=== PATIENT | female | born 1955 | race Caucasian/White ===

== ENCOUNTER 2023-11-07 23:07 | Inpatient (IN) | payer OTHER, SELFPAY ==
[2023-11-07] VITALS (8 sets, daily range): BP systolic 86–134; BP diastolic 45–92; BMI 36.8
[2023-11-07 18:16] LABS: % Basophils 0.4 % (0-2); % Eosinophils 1.5 % (0-6); % Immature Granulocytes 0.5 % (0-0.5); % Lymphocytes 15.1 % (20.5-51.1); % Monocytes 5.4 % (1.7-9.3); % Neutrophils 77.1 % (42.2-75.2); Absolute Eosinophils 0.1 10^3/uL (0-0.7); Absolute Immature Granulocytes 0.1 10^3/uL (0-0.05); Absolute Lymphocytes 1.4 10^3/uL (1.2-3.4); Absolute Monocytes 0.5 10^3/uL (0.1-0.6); Absolute Neutrophils 7.1 10^3/uL (1.4-6.5); Hematocrit 34.9 % (37.0-47.0); Hemoglobin 11.5 g/dL (12.0-16.0); Mean Corpuscular Hgb 33.4 pg (27.0-31.0); Mean Corpuscular Volume 101.5 fL (81.0-99.0); Mean Platelet Volume 8.5 fL (7.4-10.4); Nucleated Red Blood Cells % 0 %; Platelet Count 332 10^3/uL (130-400); Red Blood Cell Count 3.44 10^6/uL (4.20-5.40); Red Cell Dist. Width 16.9 % (11.5-14.5); White Blood Cell Count 9.3 10^3/uL (4.8-10.8)
[2023-11-07 18:27] LABS: INR 1.22; PT 15.4 Sec (11.4-14.6)
[2023-11-07 18:36] LABS: ALT (SGPT) 19 U/L (0-35); AST (SGOT) 39 U/L (14-36); Albumin 2.6 g/dl (3.5-5.0); Alkaline Phosphatase 231 U/L (38-126); Blood Urea Nitrogen 13 mg/dl (7-17); Calcium 7.8 mg/dl (8.4-10.2); Carbon Dioxide 23 mmol/L (22-30); Chloride 106 mmol/L (98-107); Glucose 109 mg/dl (70-99); Potassium 3.8 mmol/L (3.5-5.1); Sodium 133 mmol/L (135-145); Total Bilirubin 0.7 mg/dl (0.2-1.3); Total Protein 5.2 g/dl (6.3-8.2); eGFR > 60.00
--- NOTE | 2023-11-07 18:37 | ED.GENMED ---
History of Present Illness
General
Chief Complaint: Rectal Bleeding
Source: patient
Exam Limitations: none
Time Seen by Provider: 11/07/23 18:01
Travel History
Have you had any contact with someone who has COVID-19?: No
Do you have any symptoms of coronavirus? Fever > 100 degrees, chills, cough, shortness of breath, sore throat, loss of taste or smell, muscle aches, or headache?: No
History of Present Illness
History of Present Illness:
This is a 68 year old female that comes in with c/o vomiting. States that she is just vomiting bile. States that this started today. States that also about 4 days ago she has stool that was dark blood with clots. States that she felt SOB, nausea,
vomiting and has diarrhea. States that she is also lightheaded. Denies any fever, chills, chest pain, headache, urinary burning.
Past History
Past History
ED Past Medical History: Cancer (colon and cervical), COPD, HTN, Psychiatric (depression) and Other (Obesity, SBO, JAYLEEN, migraines, back pain, DVT/PE, Sleep apnea, Ascites)
ED Past Surgical History: Bowel resection (Colon resectio), Cholecystectomy, Gynecological (Cervical CA) and Orthopedic (Cervical spine Surgery, )
Social History
Tobacco: Smoker
Alcohol: None
Drug: None
Personal:
Living: with family
Employment: Other
Family History
Family History: Other
Review of Systems
Review of Systems
All Other Systems: ROS reviewed and negative except as documented in HPI and ROS
Constitutional: Reports no symptoms; Denies fever or chills
EENT: Reports no symptoms
Respiratory: Reports trouble breathing; Denies cough
Cardiac: Reports no symptoms; Denies chest pain
ABD/GI: Reports nausea, vomiting, diarrhea and bloody stools; Denies abdominal pain
: Reports no symptoms; Denies dysuria, frequency or urgency
Musculoskeletal: Reports no symptoms
Skin: Reports no symptoms
Neurological: Reports other (Lightheaded); Denies dizzy or headache
Psychiatric: Reports no symptoms
Phy Exam
General Physical Exam
General Presentation: no apparent distress
General age: appears stated age
General Skin: warm, dry and pale
General Habitus: elderly
General Mental: alert
General Hydration: dry mucous membranes
ENT Exam
ENT Exam: TM's normal, pharynx normal and neck supple
Eye Exam
Eye Exam: EOMI
Cardiovascular Exam
Cardiovascular Exam: regular rate/rhythm, no edema and normal peripheral pulses
Pulmonary Exam
Pulmonary Exam: lungs clear, no respiratory distress, no rales, chest non tender, no crackles, no rhonchi, no wheezing and no cough
Gastrointestinal Exam
Gastrointestinal Exam: soft, no organomegaly, no pulsatile mass, non distended, tender (Generalized soreness with palpation) and other (Hypoactive bowel sounds. Stool brown hem positive slightly)
Musculoskeletal Exam
Musculoskeletal Exam: full ROM and no edema
Skin Exam
Skin Exam: warm/dry, no petechia, pallor and other (Burn ole on the right buttocks. Negative for any drainage)
Psychiatric Exam
Psychiatric Exam: normal mood/affect
Course
Orders/Labs/Results
Orders:
Orders
11/07/23 18:08
Type+Screen Urgent
Complete Blood Count/With Diff Urgent
Comprehensive Metabolic Panel Urgent
Prothrombin Time Urgent
11/07/23 18:36
CT Abd/pelvis W Iv Cont Urgent
Comment: Colon resection for CA
Reason For Exam: Generalized tenderness with palpation
0.9% Sodium Chloride 1000 ml [Nss] 1,000 ml IV BOLUS
Ondansetron Injectable [Zofran] 4 mg IV NOW STA
Pantoprazole [Protonix IV] 40 mg IV NOW STA
11/07/23 18:39
CR Chest - 2 Views Urgent
Comment:
Reason For Exam: SOB
11/07/23 18:46
Urinalysis Reflex To Culture Urgent
11/07/23 18:47
Electrocardiogram (*1) Urgent
Reason for Study: Shortness of Breath
EKG- Treatment ONCE
11/07/23 19:00
Troponin I Urgent
Abnormal Lab Results
11/07/23
18:08
RBC 3.44 L 10^6/uL
(4.20-5.40)
Hgb 11.5 L g/dL
(12.0-16.0)
Hct 34.9 L %
(37.0-47.0)
MCV 101.5 H fL
(81.0-99.0)
MCH 33.4 H pg
(27.0-31.0)
RDW 16.9 H %
(11.5-14.5)
Abs Immat Gran (auto) 0.1 H 10^3/uL
(0-0.05)
Absolute Neuts (auto) 7.1 H 10^3/uL
(1.4-6.5)
Neutrophils % 77.1 H %
(42.2-75.2)
Lymphocytes % 15.1 L %
(20.5-51.1)
PT 15.4 H Sec
(11.4-14.6)
Sodium 133 L mmol/L
(135-145)
Glucose 109 H mg/dl
(70-99)
Calcium 7.8 L mg/dl
(8.4-10.2)
AST 39 H U/L
(14-36)
Alkaline Phosphatase 231 H U/L
(38-126)
Total Protein 5.2 L g/dl
(6.3-8.2)
Albumin 2.6 L g/dl
(3.5-5.0)
11/07/23 18:08
11/07/23 18:08
H/H slighlty low. PT 15.4 with INR 1.23, Sodium slighlty low. Glucose nonfasting. Calcium low. AST slightly elevated. Alk phos elevation (history of Cancer) Total Protein low. Albumin low.
Vital Signs
Initial and Last Documented VS:
Initial Vital Signs
Temp Pulse Resp BP Pulse Ox
97.5 F 92 17 110/45 94
11/07/23 18:02 11/07/23 18:02 11/07/23 18:02 11/07/23 18:02 11/07/23 18:02
Last Documented Vital Signs
Temp Pulse Resp BP Pulse Ox
97.5 F 86 15 116/76 97
11/07/23 18:02 11/07/23 21:00 11/07/23 21:00 11/07/23 21:00 11/07/23 20:30
MDM/Problems Addressed
Differential Diagnosis Includes:
GI bleeding. Viral syndrome.
MDM/Problems Addressed:
This is a 68 year old female that comes in with c/o vomiting that started today. States that she is vomiting just bile. States that 4 nights ago she also has a stool that was dark bloody with clots according to her daughter.
Will get Labs, CT abd/pelvis, IV fluids
CT cont- 3mm nephrolith in the lower pole the left kidney. Slight dilation of the infrarenal abdominal aorta, A: dimension of 2.8.
Back into see patient. Explained that she has a small bowel obstruction. Will admit patient. Hospitalist notified.
Chronic conditions affecting care: Cancer
Acute Exacerbation and/or Progression of Chronic Illness: Cancer
*Radiology
Radiology exam reviewed: preliminary read by ED provider (Chest- Negative for active disease), radiology read reviewed (CT-CT findings compatible with small bowel obstrauction. Small amount of fluid in the right upper and left upper quadrant
adjacent to the liver and spleen. Small amount of fluidin the pelvic cul-de-sac, and this fluid demonstrates a slightly thickened enhancing wall suggestive of peritoneal), all reviewed NAD by ED Provider (CT cont- Suggestive of peritoneal neoplastic
disease. Soft tissue mass within the left anterolateral abdomen, which is likely peritoneal carcinomatosis involving the omentum, similar appearance to previous examination. Mass in the left adnexal region, likely arising in the left ovary, stable
from ) and other (CT cont- from previous exam. Severe fatty infiltration of the liver. Subtle low-density region involving the liver in the periportal region, probably slightly smaller than on previous examination, which may represent positive
response to metastatic neoplastic disease. 3mm nephrolith in the lower )
*Pulse Oximetry
Patient hypoxic: no
*EKG
Interpreted by ED Provider?: Yes
Heart Rate: 88
Rate: normal
Rhythm: sinus arrhythmia
Cache: normal axis
Interval: normal interval
QRS Pattern: normal QRS
Ischemia: no ischemia (Checked by Dr. Rousseau)
*Pattern Molder Interpretation
Rate: normal
Heart Rate: 91
Rhythm: sinus
*Critical Care Note
Total Time (30-74mins, 75-104mins- exclusive of procedures): Not Applicable
ED Attending Note
-
Portions of this chart may have been created with voice recognition software.� Occasional wrong word or��sound alike� substitutions may have occurred due to the inherent limitations of voice recognition software.
Discharge Plan
Departure
Patient Disposition: Admit
Date of Disposition: 11/07/23
Time of Disposition: 21:47
Admit to: Telemetry
Presentation/result/management discussed w/ accepting MD/DO: Hospitalist
Patient with high blood pressure during this ER visit?: No
Condition: Good
Covid-19: Not Applicable
Discharge Problem:
SBO (small bowel obstruction), Hypocalcemia
Prescriptions:
No Action
gabapentin 100 MG capsule
200 mg PO TID
fluticasone propion-salmeterol 250-50 mcg/dose blister with device
1 inh INHALATION R BID
loratadine [Claritin] 10 mg Tablet
10 mg PO DAILY
calcium carbonate [Tums] 200 mg calcium (500 mg) Tablet,Chewable
200 mg PO TIDPRN PRN (Reason: gerd)
loperamide 2 mg Capsule
2 mg PO Q4H PRN (Reason: diarrhea) Qty: 0 0RF
potassium chloride 20 mEq/15 mL Liquid
40 meq PO DAILY Qty: 0 0RF
Santyl 250 unit/gram Ointment
1 applic topical DAILY Qty: 30 0RF
cholestyramine-aspartame [Cholestyramine Light] 4 gram Powder In Packet
4 g PO BID@0900,1800 Qty: 0 0RF
mirtazapine 7.5 mg Tablet
7.5 mg PO HS Qty: 20 0RF
sodium bicarbonate 650 mg Tablet
650 mg PO TID Qty: 0 0RF
bupropion HCl 300 mg Tablet Extended Release 24 Hr
300 mg PO DAILY Qty: 0 0RF
bupropion HCl 150 mg Tablet Extended Release 24 Hr
150 mg PO HS Qty: 0 0RF
Referrals:
Lalita Small CRNP [Family Provider] -
Interventions
Interventions:
*Risk Screen - Suicide Last Done: 11/07/23 18:01
*General Assessment Last Done: 11/07/23 18:01
*Neglect/Abuse Screening Last Done: 11/07/23 18:01
ED- Fall Risk Assessment Last Done: 11/07/23 19:01
*ED COVID-19 Vaccine History Last Done: 11/07/23 18:01
SV-Pmclpm-Caupxkonpy Assessment Last Done: 11/07/23 19:01
ED- Cardiac Assessment Last Done: 11/07/23 19:01
ED- Pulmonary Assessment Last Done: 11/07/23 19:01
[2023-11-07] MEDS: PROTONIX IV 40 MG IV (18:55)
[2023-11-07] MEDS: ZOFRAN 4 MG IV (18:56)
[2023-11-07] MEDS: NSS 1000 IV (18:56)
[2023-11-07 19:39] LABS: Troponin I < 0.012 ng/ml
--- NOTE | 2023-11-07 22:17 | HPS.HSE ---
Addendum entered and electronically signed by Braulio Mejia MD 11/07/23 22:58:
I saw and examined the patient.
The FREIGHT UNLOADER or PA's note was reviewed and I agree with the note.
Comment:
68F Obese HX met ovarian CA with extensive peritoneal dz, ascites with HX abdominal paracentesis longer on chemo since late 2022, HX SBO, chronic diarrhea, HX pancytopenia a/w recurrent partial SBO and suspected HoB pos brown stool GIB.
Hemodynamically stable. Current Hgb 11 seems hemoconcentrated. baseline Hgb was low8s. NPO, IVF, Blood consent, T & S.IV PPI BID. DNR. IMU. GS, GI and Onco consult.
Original Note:
Family Physician
-
Family Physician: HEIDI Farias
Chief Complaint
-
Vomiting
History of Present Illness
Pt is a 68yo F w/ a PMH of Colon and Ovarian Cancer, HTN, and COPD who is presenting to the ED c/o vomiting x 4 days. She states the vomit is bilious and non-bloody. She states she has passed two loose bloody stools with clots in the last 4 days.
She states she has been experiencing RUQ abdominal pain x 1 week which she states is bothersome at baseline but severe when passing stool. She states she has been unable to eat for the last three days. She admits to belching, bloating, and abdominal
distention. She admits to a history of a previous small bowel obstruction and states these symptoms are similar to that occurrence. She denies fever, chills, sweats, chest pain, headaches, urinary burning/retention/frequency, difficulty keeping
fluids down, or increased bruising.
Medical History
Past Medical History
Past Medical History: Reports Other
Additional Past Medical History:
COPD
Essential hypertension
History of VTE
Chronic peripheral neuropathy
Anxiety/depression
Tobacco dependence
Obesity
Colon cancer
Ovarian cancer
Obstructive sleep apnea
Past Surgical History: Reports Gynocological and Other
Additional Past Surgical History:
Partial colectomy
Cholecystectomy
Orthopedic surgery of cervical spine
Social History
Tobacco: Smoker (Less than 5 cigarettes daily)
Alcohol: None
Drug: None
Living: With Family
Family History
Family History: Not pertinent
Allergies / Home Medications
Allergies reflects when Allergies were last updated in [facility].
Home Medications with original date entered in [facility]
Allergy/Medication List:
Allergies
Allergy/AdvReac Type Severity Reaction Status Date / Time
No Known Allergies Allergy Verified 05/06/23 22:14
Home Medications
gabapentin 100 mg capsule 200 mg PO TID leg pain 11/10/20
fluticasone 250 mcg-salmeterol 50 mcg/dose blistr powdr for inhalation 1 inh inhalation R BID Lung/Breathing Issues 03/15/23
loratadine 10 mg tablet (Claritin) 10 mg PO DAILY PRN prior to chemo shot 05/17/23
calcium carbonate 200 mg calcium (500 mg) chewable tablet (Tums) 200 mg PO TIDPRN PRN gerd 08/17/23
bupropion HCl 150 mg 24 hr tablet, extended release 150 mg PO HS #0 tabs 08/30/23
bupropion HCl 300 mg 24 hr tablet, extended release 300 mg PO DAILY #0 tabs 08/30/23
cholestyramine-aspartame 4 gram oral powder for susp in a packet (Cholestyramine Light) 4 g PO BID@0900,1800 #0 ea 08/30/23
mirtazapine 7.5 mg tablet 7.5 mg PO HS #20 tabs 08/30/23
sodium bicarbonate 650 mg tablet 650 mg PO TID #0 tabs 08/30/23
apixaban 5 mg tablet (Eliquis) 5 mg PO BID 11/07/23
potassium chloride 20 mEq tablet,extended release 40 meq PO DAILY 11/07/23
Review of Systems
-
A 12 point ROS was completed and negative except as noted: Yes
Constitutional: Denies Fever or Chills
Respiratory: Denies Cough or Trouble Breathing
Cardiac: Denies Chest Pain or Palpitations
Abdomen/GI: Reports See HPI
Physical Exam
Vital Signs
Vital Signs
Temp Pulse Resp BP Pulse Ox
97.5 F 97 21 134/72 97
11/07/23 18:02 11/07/23 22:00 11/07/23 22:00 11/07/23 22:00 11/07/23 20:30
Physical Exam
General: Comfortable and Conversant
HEENT: Anicteric and Moist mucous membranes
Respiratory: Clear and Non Labored Respirations
Cardiac: S1/S2 and Regular Rhythm
GI: Soft, Tender (Mild throughout without rebound or guarding) and Other (Hypoactive bowel sounds)
Rectal: Hem Positive (Per ED provider)
Musculoskeletal: No Clubbing and No Cyanosis
Skin: Warm and Dry
Neuro: Awake, Alert, Oriented and Nonfocal/grossly intact
Laboratory Results
-
11/07/23 18:08
11/07/23 18:08
Laboratory Results
PT 15.4 Sec (11.4-14.6) H 11/07/23 18:08
INR 1.22 11/07/23 18:08
Total Bilirubin 0.7 mg/dl (0.2-1.3) 11/07/23 18:08
AST 39 U/L (14-36) H 11/07/23 18:08
ALT 19 U/L (0-35) 11/07/23 18:08
Alkaline Phosphatase 231 U/L (38-126) H 11/07/23 18:08
Troponin I < 0.012 ng/ml 11/07/23 19:00
Data Reviewed
-
CT Scan: Report Reviewed by me
Lab Data: Labs Reviewed by me
Old Records: Reviewed
Impression/Plan
-
Partial Small Bowel Obstruction, possibly related to adhesions vs peritoneal carcinomatosis
-Consult Surgical
-Continue NPO - Hold on NGT unless develops increased abdominal pain or recurrent vomiting
GI Bleed, patient notes passage of blood/clots a few days ago with heme-positive stool in ED
-Consult GI
-Hold Eliquis
-Trend H&H
-Blood consent obtained
Metastatic Ovarian Cancer
-Consult Oncology
-Monitor blood counts
Anxiety/Depression
-Continue bupropion and Remeron if able to tolerate sips of clears
Peripheral Neuropathy
-Continue gabapentin
Chronic Diarrhea
-Hold cholestyramine
COPD, no acute exacerbation
-Continue fluticasone/salmeterol
DVT Proph: SCDs until able to resume Eliquis
Code Status: DNR confirmed with patient at time of admission
[2023-11-08] VITALS (7 sets, daily range): BP systolic 105–134; BP diastolic 43–75; BMI 36.8
[2023-11-08] MEDS: NSS 1000 IV ×2 (00:37→13:00)
--- NOTE | 2023-11-08 01:21 | PTCARENOTE ---
Received pt from the ER via stretcher at 2340. She arrived awake and alert and oriented x 3. She was incontinent of urine an a smear of BM dark in color. She has no complaints of any nausea. She is taking ice chips orally without difficulty or
nausea. She has a wound , 'burn' on her R hip area that was dressed by VN. Removed dressing and cleansed with NSS and dressed with a boarder Silicone dressing. Will consult wound care.
[2023-11-08 05:11] LABS: Hematocrit 32.3 % (37.0-47.0); Hemoglobin 10.6 g/dL (12.0-16.0); Mean Corp Hgb Conc. 32.8 g/dL (33.0-37.0); Mean Corpuscular Hgb 33.3 pg (27.0-31.0); Mean Corpuscular Volume 101.6 fL (81.0-99.0); Mean Platelet Volume 8.6 fL (7.4-10.4); Platelet Count 272 10^3/uL (130-400); Red Blood Cell Count 3.18 10^6/uL (4.20-5.40); White Blood Cell Count 5.9 10^3/uL (4.8-10.8)
[2023-11-08 05:35] LABS: Blood Urea Nitrogen 13 mg/dl (7-17); Calcium 7.6 mg/dl (8.4-10.2); Carbon Dioxide 23 mmol/L (22-30); Chloride 109 mmol/L (98-107); Estimated Creatinine Clearance 87 ml/min; Glucose 81 mg/dl (70-99); Potassium 3.7 mmol/L (3.5-5.1); Sodium 136 mmol/L (135-145); eGFR > 60.00
[2023-11-08] MEDS: ZOFRAN 4 MG IV (07:18)
[2023-11-08] MEDS: ADVAIR HFA 115/21 MCG INHALER 2 PUFF INH ×2 (07:27→19:39)
--- NOTE | 2023-11-08 07:36 | CON.GI ---
Addendum entered and electronically signed by Lois Gamino Do, MD 11/08/23 13:10:
I saw and examined the patient.
The RELOCATION SERVICES SPECIALIST's note was reviewed and I agree with the note.
Comment: Ayah is a 68yo W with h/o colon cancer s/p resection 2020 then metastatic ovarian cancer diagnosed 2022 s/p chemo who was admitted for N/V found to have SBO and carcinomatosis. Exam VSS AF. chronically ill appearing, distended abd,
hypoactive BS. Labs reviewed Imaging CT with SBO with carcinomatosis, mass in L adenxa region.
Impression
- SBO
Likely related to carcinomatosis and possible adhesions
- Metastatic ovarian ca
- H/o Colon cancer
- Chronic anemia
- COPD
- s/p CYY
Recommendations
- Agree with NGT placement
- Appreciate surgical recs
- Diet per surgery
- C/w IVF
- Would be difficult to place venting PEG tube given carcinomatosis.
At this juncture GI will sign off but available for questions
Original Note:
Consultation
-
Date/Time Consultation Requested: 11/07/23 2345
Date/Time Consultation Performed: 11/08/23 0900
Requesting Provider: Haily Ross PA-C
Performing Provider: HEIDI Rodriguez, Lois Garcia MD
Reason for Consultation: vomiting, blood stools
Medical History
Chief Complaint / HPI
Chief Complaint: vomiting
History of Present Illness:
Pt is a 68yo with hx colon CA 2020 with partial resection and chemo, then metastatic ovarian CA dx 2022 with chemo, COPD, DVT on Eliquis, anxiety/depression, neuropathy with onset of vomiting x 4 days. She is also noted with blood stools and
recall 2 episode of burgundy stool in diaper. Pt states prior to admission she would have occasional days of vomiting but would resolve quickly. She is also noted with increased GERD over last few days. On admission CT concerning for small bowel
obstruction with fluid in cul de sac and thickened wall with peritoneal neoplastic disease with soft tissues mass similar to prior exam, mass in left adnexal region, fatty liver slightly smaller.
Pt also admits to chronic diarrhea since last year with mild abdominal pain. She has had decrease mobility and chronic loose stools in diaper. She has had over 100 lbs wt loss last 1-2 years with diagnosis of cancer. She otherwise denies
dysphagia, or black stools. last colonoscopy 02/[address] Carranza - 5 mm polyp TC, diverticulosis, hemorrhoids Bx TA polyp
Past Medical History
Past Medical History: Cancer (2022 metastatic ovarian CA with extensive peritoneal disease, ascites, colon CA 2020 with partial resection and chemo), COPD, HTN, Psychiatric (anxiety/depression) and Other (SBO, chronic diarrhea, pancytopenia, DVT,
obesity, tobacco abuse, neuropathy)
Past Surgical History: Bowel Resection (right hemicolectomy), Cholecystectomy and Other (pilonidal cyst excision)
Social History
Tobacco: Smoker (2 cigarettes daily )
Alcohol: None
Drug: None
Living: With Family (daughter and grandchild)
Employment: Retired
Family History
Family History: Reviewed & Not Pertinent
Allergies / Home Medications
Allergy/AdvReac Type Severity Reaction Status Date / Time
No Known Allergies Allergy Verified 05/06/23 22:14
Medication Instructions Recorded
gabapentin 100 mg capsule 200 mg PO TID leg pain 11/10/20
fluticasone 250 mcg-salmeterol 50 1 inh inhalation R BID 03/15/23
mcg/dose blistr powdr for Lung/Breathing Issues
inhalation
loratadine 10 mg tablet (Claritin) 10 mg PO DAILY PRN prior to chemo 05/17/23
shot
calcium carbonate 200 mg calcium 200 mg PO TIDPRN PRN gerd 08/17/23
(500 mg) chewable tablet (Tums)
bupropion HCl 150 mg 24 hr tablet, 150 mg PO HS #0 tabs 08/30/23
extended release
bupropion HCl 300 mg 24 hr tablet, 300 mg PO DAILY #0 tabs 08/30/23
extended release
cholestyramine-aspartame 4 gram 4 g PO BID@0900,1800 #0 ea 08/30/23
oral powder for susp in a packet
(Cholestyramine Light)
mirtazapine 7.5 mg tablet 7.5 mg PO HS #20 tabs 08/30/23
sodium bicarbonate 650 mg tablet 650 mg PO TID #0 tabs 08/30/23
apixaban 5 mg tablet (Eliquis) 5 mg PO BID 11/07/23
potassium chloride 20 mEq 40 meq PO DAILY 11/07/23
tablet,extended release
Review of Systems
-
History Source: Patient
Constitutional: Reports Weight Loss and Fatigue
EENT: Reports No Symptoms
Respiratory: Reports Cough (with NGT placement )
Abdomen/GI: Reports Abdominal Pain (mild), Nausea, Vomiting, Diarrhea and Bloody Stools
: Reports No Symptoms
Musculoskeletal: Reports Other (decreased mobility with neuropathy)
Skin: Reports No Symptoms
Neurological: Reports Weakness
Endocrine: Reports No Symptoms
Hematologic/Lymphatic: Reports Bleeding
Vital Signs
Temp Pulse Resp BP Pulse Ox
98.9 F 78 15 118/64 96
11/08/23 03:03 11/08/23 07:32 11/08/23 07:32 11/08/23 04:00 11/08/23 07:32
Physical Exam
Exam
General: Well Developed, Well Nourished and Other (some noted coughing after NGT placement )
HEENT: Normocephalic and Anicteric
Respiratory: Other (decreased )
Cardiac: Regular Rhythm
GI: Soft, Non Tender and Non Distended
Rectal: Other (brown heme + in ER)
Musculoskeletal: No Clubbing and No Cyanosis
Skin: Warm and Dry
Neuro: Awake, Alert and AO x 3
Psych: Calm
Results
WBC 5.9 10^3/uL (4.8-10.8) 11/08/23 05:01
Hgb 10.6 g/dL (12.0-16.0) L 11/08/23 05:01
Hct 32.3 % (37.0-47.0) L 11/08/23 05:01
MCV 101.6 fL (81.0-99.0) H 11/08/23 05:01
Plt Count 272 10^3/uL (130-400) 11/08/23 05:01
Absolute Neuts (auto) 7.1 10^3/uL (1.4-6.5) H 11/07/23 18:08
PT 15.4 Sec (11.4-14.6) H 11/07/23 18:08
INR 1.22 11/07/23 18:08
Sodium 136 mmol/L (135-145) 11/08/23 05:01
Potassium 3.7 mmol/L (3.5-5.1) 11/08/23 05:01
Chloride 109 mmol/L (98-107) H 11/08/23 05:01
Carbon Dioxide 23 mmol/L (22-30) 11/08/23 05:01
BUN 13 mg/dl (7-17) 11/08/23 05:01
Creatinine 0.7 mg/dL (0.6-1.0) 11/08/23 05:01
Calcium 7.6 mg/dl (8.4-10.2) L 11/08/23 05:01
Total Bilirubin 0.7 mg/dl (0.2-1.3) 11/07/23 18:08
AST 39 U/L (14-36) H 11/07/23 18:08
ALT 19 U/L (0-35) 11/07/23 18:08
Alkaline Phosphatase 231 U/L (38-126) H 11/07/23 18:08
Diagnostic Image Results:
2/22- abd film pending
11/07 CXR No evidence of active cardiopulmonary disease.
11/07 ��CT Abd/pelvis W Iv ContCT findings compatible with small bowel obstruction.
Small amount of fluid in the right upper and left upper quadrant adjacent to the liver and spleen.
Small amount of fluid in the pelvic cul-de-sac, and this fluid demonstrates a slightly thickened enhancing wall suggestive of peritoneal neoplastic disease.
Soft tissue mass within the left anterolateral abdomen, which is likely peritoneal carcinomatosis involving the omentum, similar appearance to previous examination.
Mass in the left adnexal region, likely arising in the left ovary, stable from previous exam.
Severe fatty infiltration of the liver. Subtle low-density region involving the liver in the periportal region, probably slightly smaller than on previous examination, which may represent positive response to metastatic neoplastic disease.
3 mm nephrolith in the lower pole the left kidney.
Slight dilation of the infrarenal abdominal aorta, AP dimension of 2.8 cm.
Prior GI Procedures:
EGD: pt did not recall
Colonoscopy: 02/[address] Carranza - 5 mm polyp TC, diverticulosis, hemorrhoids Bx TA polyp
Assessment / Plan
-
Pt is a 68yo with hx colon CA 2020 with partial resection and chemo, then metastatic ovarian CA dx 2022 with chemo, COPD, DVT on Eliquis, anxiety/depression, neuropathy with onset of vomiting x 4 days. She is also noted with blood stools and
recall 2 episode of burgundy stool in diaper. Pt states prior to admission she would have occasional days of vomiting but would resolve quickly. She is also noted with increased GERD over last few days. On admission CT concerning for small bowel
obstruction with fluid in cul de sac and thickened wall with peritoneal neoplastic disease with soft tissues mass similar to prior exam, mass in left adnexal region, fatty liver slightly smaller.
-small bowel obstruction with vomiting
-blood stools
-hx colon CA with right hemicolectomy and prior chemo 2021
-metastatic ovarian CA with prior chemo
-DVT on Eliquis prior to admission
other medical problems:
-COPD
-anxiety/depression
-neuropathy with decreased mobility
-obesity with recent wt loss
-JAYLEEN
PLAN:
Etiology of vomiting with concern for SBO
agree with NGT placement -- awaiting follow up for X ray to confirm placement
NPO/IVF
monitor stool with recent rectal bleeding- only small brown smear noted overnight brown stool on rectal in ER
hold on any scopes with SBO-- last colonoscopy 2022 as noted
cont to follow hbg - transfuse as needed - hbg stable 11.5 on admission with minimal drop to 10.6 after admission
cont PPI with some blood drainage noted in canister
surgery following with concern for SBO
for oncology eval with hx metastastic ovarian CA
-
-
Thank you for consultation and allowing me to participate in the patient's care. Please call the auto transmission specialist GI physician during the after hours with any questions or concerns.
--- NOTE | 2023-11-08 08:08 | W.PN.HOSP.TC ---
Today's Communication/Plan
-
NG tube
IV fluids
N.p.o.
Surgery consult
Assessment / Plan
Assessment / Plan
Gen-AAOx3, NAD, obese
HEENT-NC, AT, anicteric, clear oral mm
Neck-supple
CV-reg, no M, +S1/S2
Lungs-clear B/L
Abd-soft, mild diffuse tenderness, mild distention
Ext-bilateral lower extremity edema
Musculoskeletal-no cyanosis, clubbing
Skin-warm and dry
Neuro-grossly non-focal
Psych-calm, cooperative
Subacute GI bleed -hemodynamically stable. GI bleed exacerbated by anticoagulation with Eliquis. Heme positive stool in the emergency room. Eliquis on hold. Monitor hemoglobin. GI consulted.
Small bowel obstruction -second episode of bowel obstruction in her lifetime. Suspect malignant obstruction given known history of ovarian cancer. Symptoms started yesterday. Continue n.p.o., IV fluids. Suspect she needs an NG tube. Discussed
with Dr. Casey.
History of bowel obstruction with cecal mass -treated with right colectomy February 2021.
Metastatic ovarian cancer -followed by [facility]. Treated with chemotherapy last year.
History of colon cancer -treated in 2020 with partial colectomy and chemotherapy.
COPD without exacerbation -stable.
Essential hypertension -stable.
JAYLEEN
Chronic anemia -unclear baseline hemoglobin. Hemoglobin was 8.1 in August, 11.5 yesterday, 10.6 today. Monitor for now.
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
Anxiety/depression
Peripheral neuropathy
Obesity due to excess calories
DNR
Anticipated Discharge: > 48 hours
Subjective/Interval History
-
Date of Service: November 08, 2023
Patient seen and examined. Vomited again this morning. Feels somewhat worse today compared to last night.
Objective Data
-
Labs:
Laboratory Results
11/08/23
05:01
WBC 5.9
Hgb 10.6 L
Hct 32.3 L
Plt Count 272
Sodium 136
Potassium 3.7
Chloride 109 H
Carbon Dioxide 23
BUN 13
Creatinine 0.7
Glucose 81
Calcium 7.6 L
Vital Signs:
Vital Signs
Temp Pulse Resp BP Pulse Ox
98.9 F 78 15 118/64 96
11/08/23 03:03 11/08/23 07:32 11/08/23 07:32 11/08/23 04:00 11/08/23 07:32
I&O
11/07/23 11/08/23 11/09/23
06:59 06:59 06:59
Intake Total 400 / 400
Balance 400 / 400
Review of Systems
-
History Source: Patient
All other systems: Reviewed and negative
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
[2023-11-08] MEDS: PROTONIX IV 40 MG IV ×2 (09:50→20:17)
[2023-11-08] MEDS: NSS (PRESERVATIVE FREE) 10 ML IV ×2 (09:51→20:18)
[2023-11-08] MEDS: DESENEX/MITRAZOL/ZEASORB 1 APPLIC TOPICAL ×2 (09:52→20:17)
[2023-11-08] MEDS: DILAUDID 0.5 MG IV (09:55)
--- NOTE | 2023-11-08 10:12 | PTCARENOTE ---
Pt vomitting very nauseated , DR Wayne inserted ng tube with immediate results. Pt co of pain Dilaudid given as ordered. Pt is now more comfortable
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
[2023-11-08] MEDS: REGLAN 5 MG IV ×2 (13:00→20:18)
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
--- NOTE | 2023-11-08 15:08 | CM ---
Patient with Hx Metastatic ovarian cancer with Dx Subacute GI bleed, SBO. Room air. NPO/NGT. PT & OT Evals pending.
Met with patient who was sleeping.
Spoke with patient's daughter Giuliana;
the patient resides with her daughter Giuliana and 12 yo grandson in a one story house with ramp at entrance.
She has been assisted with ADLs and is recently mostly w/c bound.
Daughter says the patient went to [facility] for rehab in Aug 2023 however she developed Covid shortly after arrival, was quarantined and did not do much rehab while there. She ambulated a short distance on the last day she was there.
DME - RW, SPC, w/c, shower seat,
VN - current with [facility] for SN/PT/OT/WINDOW CUTTER.
SNF - [facility]
PCP - Lalita Small
Pharmacy - [facility]
Ayah is hoping that her mother can go to SNF for rehab at discharge to get her more mobile again. She does not want [facility] again. She is agreeable to SNFs between [place] & [place] with good ratings. If patient goes directly home she is
requesting a hospital bed to make it easier for her to get OOB.
Plan follow up after PT/OT Evals.
[2023-11-08] MEDS: HYDROPHOR TOPICAL (16:47)
[2023-11-08] MEDS: HYDROPHOR 1 APPLIC TOPICAL (17:54)
[2023-11-09] VITALS (13 sets, daily range): BP systolic 92–137; BP diastolic 45–75; PULSE 75–77; O2SAT 93–95; BMI 37.5; BMI 37.4
[2023-11-09] MEDS: NSS 1000 IV (00:18)
[2023-11-09] MEDS: REGLAN 5 MG IV ×3 (04:30→20:07)
[2023-11-09 05:05] LABS: % Basophils 0.5 % (0-2); % Eosinophils 5.9 % (0-6); % Immature Granulocytes 0.5 % (0-0.5); % Monocytes 9.8 % (1.7-9.3); % Neutrophils 49.3 % (42.2-75.2); Absolute Eosinophils 0.3 10^3/uL (0-0.7); Absolute Lymphocytes 1.5 10^3/uL (1.2-3.4); Absolute Monocytes 0.4 10^3/uL (0.1-0.6); Absolute Neutrophils 2.1 10^3/uL (1.4-6.5); Hematocrit 27.6 % (37.0-47.0); Hemoglobin 8.8 g/dL (12.0-16.0); Mean Corp Hgb Conc. 31.9 g/dL (33.0-37.0); Mean Corpuscular Hgb 33.5 pg (27.0-31.0); Mean Corpuscular Volume 104.9 fL (81.0-99.0); Mean Platelet Volume 8.7 fL (7.4-10.4); Nucleated Red Blood Cells % 0 %; Platelet Count 229 10^3/uL (130-400); Red Blood Cell Count 2.63 10^6/uL (4.20-5.40); Red Cell Dist. Width 17.3 % (11.5-14.5); White Blood Cell Count 4.3 10^3/uL (4.8-10.8)
[2023-11-09 05:38] LABS: ALT (SGPT) 13 U/L (0-35); AST (SGOT) 24 U/L (14-36); Albumin 1.7 g/dl (3.5-5.0); Alkaline Phosphatase 153 U/L (38-126); Blood Urea Nitrogen 15 mg/dl (7-17); Calcium 7.3 mg/dl (8.4-10.2); Carbon Dioxide 22 mmol/L (22-30); Chloride 110 mmol/L (98-107); Estimated Creatinine Clearance 88 ml/min; Glucose 61 mg/dl (70-99); Sodium 138 mmol/L (135-145); Total Bilirubin 0.5 mg/dl (0.2-1.3); Total Protein 3.9 g/dl (6.3-8.2); eGFR > 60.00
--- NOTE | 2023-11-09 06:06 | SUR.PHASEI ---
Cared for pt overnight. pt aaox3, very pleasant, drowsy. denies pain. NGT continues to drain yellow in color, drained 175cc overnight. No N/V/D. Pt is passing gas now. NSR on monitor, RA 96%. q2T. pt washed up & desenex applied, wound care done. RSQ
port with good blood return. IVF running. Call callahan in reach, will monitor.
[2023-11-09] MEDS: DESENEX/MITRAZOL/ZEASORB 1 APPLIC TOPICAL ×2 (07:15→20:06)
[2023-11-09] MEDS: HYDROPHOR 1 APPLIC TOPICAL (07:15)
[2023-11-09] MEDS: KCL 270 MEQ IV ×2 (07:16→11:32)
[2023-11-09] MEDS: NSS (PRESERVATIVE FREE) 10 ML IV ×2 (07:16→20:06)
[2023-11-09] MEDS: PROTONIX IV 40 MG IV ×2 (07:16→20:07)
[2023-11-09] MEDS: ADVAIR HFA 115/21 MCG INHALER 2 PUFF INH (07:36)
--- NOTE | 2023-11-09 08:00 | W.PN.HOSP.TC ---
Addendum entered and electronically signed by Ruddy Freire DO 11/09/23 11:41:
Severe malnutrition of chronic illness
Original Note:
Today's Communication/Plan
-
Await surgery input
Replete potassium
Check magnesium
Continue IV fluids
Assessment / Plan
Assessment / Plan
Gen-AAOx3, NAD, obese
HEENT-NC, AT, anicteric, clear oral mm, NG tube in place
Neck-supple
CV-reg, no M, +S1/S2
Lungs-clear B/L
Abd-soft, mild diffuse tenderness, mild distention
Ext-bilateral lower extremity edema
Musculoskeletal-no cyanosis, clubbing
Skin-warm and dry
Neuro-grossly non-focal
Psych-calm, cooperative
Subacute GI bleed -hemodynamically stable. GI bleed exacerbated by anticoagulation with Eliquis. Heme positive stool in the emergency room. Eliquis on hold. Monitor hemoglobin. GI consulted. She had a brown smear bowel movement yesterday.
Acute on chronic anemia -unclear baseline hemoglobin. Acute blood loss anemia due to GI bleed. Baseline chronic anemia likely due to malignancy. Hemoglobin down to 8.8 today, hemoglobin 11.5 on admission. Monitor for now. Component of
dilutional acute anemia from IV fluids as well.
Small bowel obstruction -second episode of bowel obstruction in her lifetime. Suspect malignant obstruction given known history of ovarian cancer. Continue NG tube per surgery recommendation. Continue n.p.o., IV fluids.
Hypokalemia -replete intravenously. Check magnesium.
History of bowel obstruction with cecal mass -treated with right colectomy February 2021.
Metastatic ovarian cancer -followed by [facility]. Treated with chemotherapy last year.
History of colon cancer -treated in 2020 with partial colectomy and chemotherapy.
COPD without exacerbation -stable.
Essential hypertension -stable.
JAYLEEN
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
Anxiety/depression
Peripheral neuropathy
Obesity due to excess calories
DNR
Anticipated Discharge: > 48 hours
Subjective/Interval History
-
Date of Service: November 09, 2023
Patient seen and examined. Complaining of sore throat due to NG tube. Feeling hungry. Denies nausea or abdominal pain.
Objective Data
-
Labs:
Laboratory Results
11/09/23
04:31
WBC 4.3 L
Hgb 8.8 L
Hct 27.6 L
Plt Count 229
Sodium 138
Potassium 3.0 L
Chloride 110 H
Carbon Dioxide 22
BUN 15
Creatinine 0.7
Glucose 61 L
Calcium 7.3 L
Total Bilirubin 0.5
AST 24
ALT 13
Alkaline Phosphatase 153 H
Vital Signs:
Vital Signs
Temp Pulse Resp BP Pulse Ox
98.4 F 80 14 117/61 95
11/09/23 03:36 11/09/23 07:43 11/09/23 07:43 11/09/23 06:00 11/09/23 06:00
I&O
11/08/23 11/09/23 11/10/23
06:59 06:59 06:59
Intake Total 400 / 400 1999 / 1999
Output Total 725 / 725
Balance 400 / 400 1275 / 1275
Review of Systems
-
History Source: Patient
All other systems: Reviewed and negative
--- NOTE | 2023-11-09 08:12 | PN.CDI ---
CDI
- -
CDI:
Physician Documentation Request
Admit Date: 11/07/23 23:07
Dear Doctor Mouna,
Please review the following and provide your response in the progress notes.
Clinical Indicators:
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
#She admits to poor intakes over the past ~6 months due to chemotherapy treatment side effects. Per chart, pt completed chemo in August 2023.
#CBW: 214 lb 4.629 oz BMI 36.8 obese range 11/08; 244 lb 08/08; 289 lb 9 oz 05/08; 304 lb 10/18/22.
#Significant weight loss of 12.3% x 3 months, 26% x 6 months, 30% x 1 year.
#Pt mentioned that it was good because she needed to lose weight;
#...reminded pt that adequate kcal and protein intake is essential to maintain muscle mass.
#Per ASPEN/AND guidelines, pt meets for severe malnutrition in the context of chronic illness as evidenced by inadequate oral intake x > 6 months; significant weight loss of 12.3% x 3 months, 26% x 6 months, 30% x 1 year.
Based on the above and your clincial assessment, please clarify which of the following most accurately represents the patient's nutritional status?
Severe malnutrition of chronic illness
Other (please specify)
[place] Criteria (ACP Hospitalist 2017)
2 or more criteria must be present for either
non severe or severe malnutrition
Note that the criteria differs related to the
presence of an acute or chronic illness
Chronic Illness
Energy Intake Non Severe: <75% for >1 month
Severe: <75% for >1 month
Weight Loss Non Severe: 5% over 1 month
7.5% over 3 months
10% over 6 months
20% over 1 year
Severe: >5% over 1 month
>7.5% over 3 months
>10% over 6 months
>20% over 1 year
Use of terms such as suspected, likely, concern for, or probable (associated with a specific diagnosis that is being evaluated, monitored, or treated as if it exists) are acceptable and can be coded in the inpatient setting, when documented at the
time of discharge.
Thank you,
Peggy Romano RN BSN CCDS
CDI Specialist
please contact via tiger text
Please use your independent medical judgment in providing your response.
[2023-11-09 08:32] LABS: Magnesium 1.8 mg/dl (1.6-2.3)
--- NOTE | 2023-11-09 09:16 | W.PN.GS2 ---
Today's Communication / Plan
-
-- UGI
Assessment / Plan
-
Patient is a 68 yo F p/w malignant SBO
AVSS, mild leukopenia
Some signs of clinical improvement with less pain and passing flatus
Recommend and plan for UGI for diagnostic and therapeutic purposes. Role of surgical intervention as a palliative procedure was discussed, at a minimum this would be an open procedure with a 1 to 2-month recovery at best. With signs of clinical
improvement, no plans or indication for surgical intervention at this time.
-- UGI
Subjective Data
-
Date of Service: November 09, 2023
Feel slightly improved. Continued abdominal soreness but better. No nausea or vomiting. Bothered by NG tube. Passing flatus, no BM. No fevers.
Objective Data
-
Intake and Output
11/08/23 11/09/23 11/10/23
06:59 06:59 06:59
Intake Total 400 / 400 2000 / 2000
Output Total 725 / 725
Balance 400 / 400 1275 / 1275
Intake:
Oral fluids 950 / 950
IV fluids (Total) 400 / 400 960 / 960
Amount instilled into GI Tube ( 90 / 90
Total)
[place] Sump 90 / 90
Output:
Gastrointestinal tube output ( 475 / 475
Total)
[place] Sump 475 / 475
Urine, Voided 250 / 250
Other:
How many times incontinent 1
SMALL amount urine
How many times incontinent 1 1
MODERATE amount urine
How many times incontinent 1
SATURATED amount urine
Vital Signs
Temp Pulse Resp BP Pulse Ox
97.5 F 70 11 113/57 96
11/09/23 07:22 11/09/23 08:00 11/09/23 08:00 11/09/23 08:00 11/09/23 08:00
Lab Results
11/09/23 04:31
11/09/23 04:31
Calcium 7.3 mg/dl (8.4-10.2) L 11/09/23 04:31
Magnesium 1.8 mg/dl (1.6-2.3) 11/09/23 04:31
Total Bilirubin 0.5 mg/dl (0.2-1.3) 11/09/23 04:31
AST 24 U/L (14-36) 11/09/23 04:31
ALT 13 U/L (0-35) 11/09/23 04:31
Alkaline Phosphatase 153 U/L (38-126) H 11/09/23 04:31
Total Protein 3.9 g/dl (6.3-8.2) L D 11/09/23 04:31
Albumin 1.7 g/dl (3.5-5.0) L 11/09/23 04:31
Physical Exam
-
Gen: NAD
HEENT: minimal gastric outputs
Abd: soft, minimal tenderness, mild distension/obese, non-peritoneal
--- NOTE | 2023-11-09 14:23 | PTCARENOTE ---
Pt to out pt radiology
--- NOTE | 2023-11-09 14:50 | PTCARENOTE ---
Iv fluid capped as per radiology
--- NOTE | 2023-11-09 15:46 | CM ---
Patient with Hx Metastatic ovarian cancer with Dx Subacute GI bleed, SBO. Room air. NPO/NGT. PT & OT Edward recommend skilled rehab.
Met with patient who agrees to short term rehab- she prefers [facility] and agrees to other SNFs between [place] & [place] with good ratings. She does not want to return to [facility].
10 SNF referrals placed.
Plan follow up SNF referrals.
[2023-11-09] MEDS: ADVAIR HFA 115/21 MCG INHALER INH (19:37)
[2023-11-09] MEDS: D5/0.45%NSS with KCL 10 MEQ 1000 IV (20:05)
[2023-11-09] MEDS: D5/0.45%NSS with KCL 10 MEQ IV (20:08)
--- NOTE | 2023-11-09 21:30 | PTCARENOTE ---
Pt down to have CR abdomen. After returning to room pt having copious amounts of light brown watery stool. Rectal trumpet placed with immediate return of watery stool. Currently additional 500mls in collection bag. Purewick placed x 2. Hygiene
completed x 2. Linens changed multiple times. Pt currently resting comfortably on left side. Call callahan remains within reach. Will continue to monitor.
[2023-11-10] VITALS (13 sets, daily range): BP systolic 95–144; BP diastolic 43–72; PULSE 79; O2SAT 95
[2023-11-10] MEDS: REGLAN 5 MG IV ×3 (03:46→19:40)
[2023-11-10 06:07] LABS: % Basophils 0.6 % (0-2); % Eosinophils 4.8 % (0-6); % Immature Granulocytes 0.4 % (0-0.5); % Lymphocytes 30.8 % (20.5-51.1); % Monocytes 8.6 % (1.7-9.3); % Neutrophils 54.8 % (42.2-75.2); Absolute Eosinophils 0.3 10^3/uL (0-0.7); Absolute Lymphocytes 1.6 10^3/uL (1.2-3.4); Absolute Monocytes 0.5 10^3/uL (0.1-0.6); Absolute Neutrophils 2.9 10^3/uL (1.4-6.5); Hematocrit 29.8 % (37.0-47.0); Hemoglobin 9.4 g/dL (12.0-16.0); Mean Corp Hgb Conc. 31.5 g/dL (33.0-37.0); Mean Corpuscular Hgb 33.3 pg (27.0-31.0); Mean Corpuscular Volume 105.7 fL (81.0-99.0); Mean Platelet Volume 8.8 fL (7.4-10.4); Nucleated Red Blood Cells % 0 %; Platelet Count 221 10^3/uL (130-400); Red Blood Cell Count 2.82 10^6/uL (4.20-5.40); Red Cell Dist. Width 17.7 % (11.5-14.5); White Blood Cell Count 5.3 10^3/uL (4.8-10.8)
[2023-11-10 06:35] LABS: Blood Urea Nitrogen 13 mg/dl (7-17); Calcium 7.7 mg/dl (8.4-10.2); Carbon Dioxide 20 mmol/L (22-30); Chloride 116 mmol/L (98-107); Estimated Creatinine Clearance 103 ml/min; Glucose 77 mg/dl (70-99); Potassium 3.2 mmol/L (3.5-5.1); Sodium 142 mmol/L (135-145); eGFR > 60.00
[2023-11-10 07:09] LABS: CEA 8.45 ng/ml
--- NOTE | 2023-11-10 07:25 | W.PN.HOSP.TC ---
Today's Communication/Plan
-
Replete potassium
IV fluids
Abdominal x-ray
Assessment / Plan
Assessment / Plan
Gen-AAOx3, NAD, obese
HEENT-NC, AT, anicteric, clear oral mm, NG tube in place
Neck-supple
CV-reg, no M, +S1/S2
Lungs-clear B/L
Abd-soft, mild diffuse tenderness, mild distention
Ext-bilateral lower extremity edema
Musculoskeletal-no cyanosis, clubbing
Skin-warm and dry
Neuro-grossly non-focal
Psych-calm, cooperative
Subacute GI bleed -hemodynamically stable. GI bleed exacerbated by anticoagulation with Eliquis. Heme positive stool in the emergency room. Eliquis on hold. Monitor hemoglobin. GI consulted and signed off.
Acute on chronic anemia -unclear baseline hemoglobin. Acute blood loss anemia due to GI bleed. Baseline chronic anemia likely due to malignancy. Hemoglobin spontaneously improved to 9.4 today. Monitor for now. Component of dilutional acute
anemia from IV fluids as well.
Small bowel obstruction -second episode of bowel obstruction in her lifetime. Suspect malignant obstruction given known history of ovarian cancer. Continue NG tube per surgery recommendation. Continue n.p.o., IV fluids. Abdominal x-ray pending
for today.
Hypokalemia -replete intravenously. Magnesium normal yesterday.
History of bowel obstruction with cecal mass -treated with right colectomy February 2021.
Metastatic ovarian cancer -followed by [facility]. Treated with chemotherapy last year.
History of colon cancer -treated in 2020 with partial colectomy and chemotherapy.
COPD without exacerbation -stable.
Essential hypertension -stable.
JAYLEEN
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
Anxiety/depression
Peripheral neuropathy
Obesity due to excess calories
DNR
Anticipated Discharge: > 48 hours
Subjective/Interval History
-
Date of Service: November 10, 2023
Patient seen and examined. Feeling hungry. Otherwise no complaints.
Objective Data
-
Labs:
Laboratory Results
11/10/23
05:53
WBC 5.3
Hgb 9.4 L
Hct 29.8 L
Plt Count 221
Sodium 142
Potassium 3.2 L
Chloride 116 H
Carbon Dioxide 20 L
BUN 13
Creatinine 0.6
Glucose 77
Calcium 7.7 L
Vital Signs:
Vital Signs
Temp Pulse Resp BP Pulse Ox
97.8 F 75 13 135/54 96
11/09/23 23:22 11/10/23 04:00 11/10/23 04:00 11/10/23 04:00 11/10/23 04:00
I&O
11/09/23 11/10/23 11/11/23
06:59 06:59 06:59
Intake Total 1999 / 1999 250 / 250
Output Total 725 / 725
Balance 1275 / 1275 250 / 250
Review of Systems
-
History Source: Patient
All other systems: Reviewed and negative
[2023-11-10] MEDS: ADVAIR HFA 115/21 MCG INHALER 2 PUFF INH ×2 (07:33→17:52)
[2023-11-10] MEDS: D5/0.45%NSS with KCL 20 MEQ 1000 IV ×2 (08:37→22:19)
[2023-11-10] MEDS: KCL 270 MEQ IV (08:37)
[2023-11-10] MEDS: DESENEX/MITRAZOL/ZEASORB 1 APPLIC TOPICAL ×2 (08:38→19:39)
[2023-11-10] MEDS: NSS (PRESERVATIVE FREE) 10 ML IV ×2 (08:38→19:40)
[2023-11-10] MEDS: PROTONIX IV 40 MG IV ×2 (08:39→19:39)
[2023-11-10] MEDS: HYDROPHOR 1 APPLIC TOPICAL (08:39)
--- NOTE | 2023-11-10 13:44 | W.PN.GS2 ---
Addendum entered and electronically signed by Ronn Johnson MD 11/10/23 13:54:
I saw and examined the patient.
The MATHEMATICAL ENGINEERING TECHNICIAN's note was reviewed and I agree with the note.
Comment:
Seen earlier with MATHEMATICAL ENGINEERING TECHNICIAN.
Passing flatus. Loose BMs overnight. Denies pain.
Vitals ok. WBC normal.
Abdomen soft and nontender.
Will do NGT clamping trial with hope of removal.
Original Note:
Today's Communication / Plan
-
Clamp trial of NGT
Assessment / Plan
-
Patient is a 68 yo F p/w malignant SBO
AFVSS
Labs stable, leukopenia resolved
Signs of clinical improvement
SBFT yesterday with delayed passage of contrast, but it did eventually reach the colon with passage of stools overnight
Surgical intervention as a palliative procedure was discussed, at a minimum this would be an open procedure with a 1 to 2-month recovery at best. With signs of clinical improvement, no plans or indication for surgical intervention at this time.
Plan:
Clamp trial of NGT today
Clear liquids if clamp trial successful
Subjective Data
-
Date of Service: November 10, 2023
Patient seen and examined at bedside with Dr. Johnson. Denies n/v. Passed a large amount of liquid stool overnight. Denies pain but notes an area of mild discomfort to the LUQ.
Objective Data
-
Intake and Output
11/09/23 11/10/23 11/11/23
06:59 06:59 06:59
Intake Total 1999 / 1999 436 / 436
Output Total 725 / 725 850 / 850
Balance 1275 / 1275 -414 / -414
Intake:
Oral fluids 950 / 950
IV fluids (Total) 960 / 960 96 / 96
IV piggybacks 250 / 250
Amount instilled into GI Tube ( 90 / 90 90 / 90
Total)
[place] Sump
Output:
Liquid stool amount 400 / 400
Rectum 400 / 400
Gastrointestinal tube output ( 475 / 475 200 / 200
Total)
[place] Sump 475 / 475 200 / 200
Urine, Voided 250 / 250 250 / 250
Other:
How many times incontinent 1 1
MODERATE amount urine
How many times incontinent 1
SATURATED amount urine
Number of unmeasured liquid
stools
Rectum 1
Vital Signs
Temp Pulse Resp BP Pulse Ox
97.5 F 81 16 140/72 97
11/10/23 12:39 11/10/23 07:35 11/10/23 07:35 11/10/23 06:00 11/10/23 11:06
Lab Results
11/10/23 05:53
11/10/23 05:53
Calcium 7.7 mg/dl (8.4-10.2) L 11/10/23 05:53
Magnesium 1.8 mg/dl (1.6-2.3) 11/09/23 04:31
Total Bilirubin 0.5 mg/dl (0.2-1.3) 11/09/23 04:31
AST 24 U/L (14-36) 11/09/23 04:31
ALT 13 U/L (0-35) 11/09/23 04:31
Alkaline Phosphatase 153 U/L (38-126) H 11/09/23 04:31
Total Protein 3.9 g/dl (6.3-8.2) L D 11/09/23 04:31
Albumin 1.7 g/dl (3.5-5.0) L 11/09/23 04:31
Physical Exam
-
Gen: NAD
HEENT: minimal gastric outputs
Abd: soft, NT, MATHEMATICAL ENGINEERING TECHNICIAN, obese
--- NOTE | 2023-11-10 16:40 | PTCARENOTE ---
+ BS, hypoactive; 950ml's out from rectal trumpet; Denies pain; Taking ice chips; Clamped tube x 3 hours for trial off as per MD order. Reconnected to suction for 30 mins with <10ml drained. NGT removed and Clear Liquids diet ordered per order.
Will continue to monitor and assess.
[2023-11-11] VITALS (12 sets, daily range): BP systolic 90–126; BP diastolic 50–87
--- NOTE | 2023-11-11 02:42 | PTCARENOTE ---
Pt resting well overnight. Drowsy but arousable. States she feels more tired. VSS. Afebrile. SBP 90's-110's. Continues with purewick mercedes urine in canister. Denies nausea. Rectal trumpet remains in with loose light brown stool in collection bag.
Abdomen soft, nondistended. Hypoactive BS. IVF's continue infusing as ordered. No change from previous assessment. Can refuse turns at times. Will continue to encourage turning. Call callahan remains within reach. Will continue to monitor.
[2023-11-11] MEDS: REGLAN 5 MG IV ×3 (03:42→20:57)
[2023-11-11 04:42] LABS: % Basophils 0.4 % (0-2); % Eosinophils 3.5 % (0-6); % Immature Granulocytes 0.4 % (0-0.5); % Lymphocytes 40.2 % (20.5-51.1); % Neutrophils 46.5 % (42.2-75.2); Absolute Eosinophils 0.2 10^3/uL (0-0.7); Absolute Monocytes 0.4 10^3/uL (0.1-0.6); Absolute Neutrophils 2.3 10^3/uL (1.4-6.5); Hemoglobin 8.7 g/dL (12.0-16.0); Mean Corp Hgb Conc. 32.2 g/dL (33.0-37.0); Mean Corpuscular Hgb 33.6 pg (27.0-31.0); Mean Corpuscular Volume 104.2 fL (81.0-99.0); Mean Platelet Volume 8.7 fL (7.4-10.4); Nucleated Red Blood Cells % 0 %; Platelet Count 221 10^3/uL (130-400); Red Blood Cell Count 2.59 10^6/uL (4.20-5.40); Red Cell Dist. Width 17.9 % (11.5-14.5); White Blood Cell Count 4.9 10^3/uL (4.8-10.8)
[2023-11-11 04:58] LABS: Urine Albumin Negative (Neg - Trace); Urine Bilirubin Negative (Negative); Urine Color Yellow; Urine Glucose Negative (Negative); Urine Ketone Negative (Negative); Urine Leukocyte 1+ (Negative); Urine Nitrite Positive (Negative); Urine Occult Blood 1+ (Negative); Urine Urobilinogen Negative (Neg - 1+)
[2023-11-11 05:00] LABS: Urine Character Cloudy (Clear)
[2023-11-11 05:12] LABS: Blood Urea Nitrogen 6 mg/dl (7-17); Calcium 7.4 mg/dl (8.4-10.2); Carbon Dioxide 23 mmol/L (22-30); Chloride 111 mmol/L (98-107); Estimated Creatinine Clearance 103 ml/min; Glucose 71 mg/dl (70-99); Potassium 3.5 mmol/L (3.5-5.1); Sodium 138 mmol/L (135-145); eGFR > 60.00
--- NOTE | 2023-11-11 05:28 | PTCARENOTE ---
Pt requesting advancement in her diet. She states 'the problem with the clears is it's all sweet minus the chicken broth.' Pt is tolerating her clear liquid diet. Informed pt that this RN will update oncoming day shift RN about her request so as to
reach out to the Dr's this am. She was thankful. Currently resting comfortable.
[2023-11-11 06:56] LABS: Urine Bacteria Many (Negative)
[2023-11-11] MEDS: NSS (PRESERVATIVE FREE) 10 ML IV ×2 (07:34→20:56)
[2023-11-11] MEDS: DESENEX/MITRAZOL/ZEASORB 1 APPLIC TOPICAL (07:35)
[2023-11-11] MEDS: HYDROPHOR 1 APPLIC TOPICAL (07:35)
[2023-11-11] MEDS: PROTONIX IV 40 MG IV ×2 (07:35→20:56)
[2023-11-11] MEDS: ADVAIR HFA 115/21 MCG INHALER 2 PUFF INH ×2 (07:48→20:56)
--- NOTE | 2023-11-11 07:54 | W.PN.HOSP.TC ---
Addendum entered and electronically signed by Ruddy Freire DO 11/11/23 15:40:
Lower extremity Doppler ultrasound reviewed with radiologist. No DVT in the right lower extremity.
Left lower extremity shows combination of nonocclusive and occlusive thrombus in the femoral popliteal deep venous system. Clinically I suspect most of it is chronic in nature.
Given relative stability and lack of active GI bleeding, will resume Eliquis tonight.
Monitor hemoglobin closely.
Original Note:
Today's Communication/Plan
-
Check lower extremity Doppler ultrasound
Monitor hemoglobin
PT/OT
Replete potassium
Assessment / Plan
Assessment / Plan
Gen-AAOx3, NAD, obese
HEENT-NC, AT, anicteric, clear oral mm
Neck-supple
CV-reg, no M, +S1/S2
Lungs-clear B/L
Abd-soft, mild diffuse tenderness, mild distention
Ext-bilateral lower extremity edema, left greater than right
Musculoskeletal-no cyanosis, clubbing
Skin-warm and dry
Neuro-grossly non-focal
Psych-calm, cooperative
Subacute GI bleed -hemodynamically stable. GI bleed exacerbated by anticoagulation with Eliquis. Heme positive stool in the emergency room. Eliquis on hold. Monitor hemoglobin. GI consulted and signed off.
Acute on chronic anemia -unclear baseline hemoglobin. Acute blood loss anemia due to GI bleed. Baseline chronic anemia likely due to malignancy. Component of dilutional acute anemia from IV fluids as well. Hemoglobin 8.7 today.
Small bowel obstruction -second episode of bowel obstruction in her lifetime. Suspect malignant obstruction given known history of ovarian cancer. NG tube removed on Sunday. Clear liquid diet started, she is tolerating.
Hypokalemia -improving.
History of bowel obstruction with cecal mass -treated with right colectomy February 2021.
Metastatic ovarian cancer -followed by [place] [facility]. Treated with chemotherapy last year.
History of colon cancer -treated in 2020 with partial colectomy and chemotherapy.
COPD without exacerbation -stable.
Essential hypertension -stable.
JAYLEEN
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 Given asymmetrical lower extremity edema and the fact that she has been off anticoagulation, will check Doppler ultrasound of her legs.
Anxiety/depression
Peripheral neuropathy
Severe malnutrition of chronic illness -prealbumin 7.0.
Obesity due to excess calories
DNR
Dispo - will need SNF on discharge given her severe deconditioning.
Anticipated Discharge: > 48 hours
Subjective/Interval History
-
Date of Service: November 11, 2023
Patient seen and examined. Feeling better. Denies nausea or abdominal pain.
Objective Data
-
Labs:
Laboratory Results
11/11/23
03:55
WBC 4.9
Hgb 8.7 L
Hct 27.0 L
Plt Count 221
Sodium 138
Potassium 3.5
Chloride 111 H
Carbon Dioxide 23
BUN 6 L
Creatinine 0.6
Glucose 71
Calcium 7.4 L
Vital Signs:
Vital Signs
Temp Pulse Resp BP Pulse Ox
98.5 F 74 15 104/53 96
11/11/23 03:27 11/11/23 06:00 11/11/23 06:00 11/11/23 06:00 11/11/23 06:00
I&O
11/10/23 11/11/23 11/12/23
06:59 06:59 06:59
Intake Total 1300 / 1300 1060 / 1060
Output Total 850 / 850 1850 / 1850
Balance 450 / 450 -790 / -790
Review of Systems
-
History Source: Patient
All other systems: Reviewed and negative
[2023-11-11] MEDS: KCL ELIXIR 40 MEQ PO (09:04)
--- NOTE | 2023-11-11 11:11 | W.PN.ONC2 ---
Today's Communication / Plan
-
- NGT removed and tolerating diet so far, ADAT
Impression
Impression
Functional SBO secondary to malignancy
Progressive peritoneal recurrence of ovarian carcinoma
History of VTE
Colon carcinoma
COPD
Hypertension
Plan
Plan
SBO typical of peritoneal small bowel dysfunction associated with malignancy no clear transition point
NG decompression. Xray 11/10 showed contrast to distal colon, no transition point, resolving partial SBO. NGT removed and so far tolerated diet, ADAT.
Continue Reglan/ondansetron for nausea
IV hydration
Patient has seen palliative care as an outpatient has been unable to initiate bevacizumab as a performance status. will continue to reassess PS and consideration of resuming palliative interventions.
Will follow
Subjective/Objective
Chief Complaint
partial bowel obstruction due to peritoneal metastases
Subjective
pt feeling well. NGT removed yesterday and tolerating liquid diet last night. denies recurrent abdominal pain, nausea and having loose stools.
Vital Signs:
Vital Signs
Temp Pulse Resp BP Pulse Ox
98 F 82 15 104/53 95
11/11/23 07:30 11/11/23 07:54 11/11/23 07:54 11/11/23 06:00 11/11/23 08:15
Lab Results:
Laboratory Data
WBC 4.9 10^3/uL (4.8-10.8) 11/11/23 03:55
Hgb 8.7 g/dL (12.0-16.0) L 11/11/23 03:55
Plt Count 221 10^3/uL (130-400) 11/11/23 03:55
PT 15.4 Sec (11.4-14.6) H 11/07/23 18:08
INR 1.22 11/07/23 18:08
eGFR > 60.00 11/11/23 03:55
Physical Exam
HEENT: No Jaundice
GI: Soft and Normal Bowel Sounds; No Distended
Rectal: Brown
Extremities: No Edema
Neuro: Non Focal
Review of Systems
Review of Systems
Constitutional: Denies Fever
Gastrointestinal: Reports Diarrhea; Denies Nausea/Vomiting
Neurological: Denies Headache
--- NOTE | 2023-11-11 11:55 | W.PN.GS2 ---
Addendum entered and electronically signed by Abbe Srivastava MD 11/11/23 18:47:
I saw and examined the patient.
The ART MODEL's note was reviewed and I agree with the note.
Comment:
No overnight events, tolerating clears, having flatus and BMs.
AF VSS, ABD S/mildly distended/NT
� Advance to low residue, but instructed patient to go slow
Original Note:
Today's Communication / Plan
-
Advance diet
Assessment / Plan
-
Patient is a 68 yo F p/w malignant SBO
AFVSS
Labs stable, clinically improved.
SBFT with delayed passage of contrast, but it did eventually reach the colon with passage of stools since that time
+Flatus/Stools. No n/v. Appetite increasing.
Plan:
Tolerating FLD
Advance to LRD with suppl
Dietary counseling provided to patient - recommended that she generally may need to consume smaller portions and softer/easier to digest foods for the foreseeable future to hopefully minimize recurrent pSBO symptoms/occurrences.
Subjective Data
-
Date of Service: November 11, 2023
Patient seen and examined at bedside. Denies n/v. Tolerating full liquids and reports her appetite has returned. Passing liquid stools.
Objective Data
-
Intake and Output
11/10/23 11/11/23 11/12/23
06:59 06:59 06:59
Intake Total 1300 / 1300 1060 / 1060
Output Total 850 / 850 1850 / 1850
Balance 450 / 450 -790 / -790
Intake:
Oral fluids 100 / 100
IV fluids (Total) 960 / 960 960 / 960
IV piggybacks 250 / 250
Amount instilled into GI Tube ( 90 / 90
Total)
[place] Sump 90 / 90
Output:
Liquid stool amount 400 / 400 1050 / 1050
Rectum 400 / 400 1050 / 1050
Gastrointestinal tube output ( 200 / 200
Total)
[place] Sump 200 / 200
Urine, Voided 250 / 250 800 / 800
Other:
How many times incontinent 1
MODERATE amount urine
Number of unmeasured liquid
stools
Rectum 1
Vital Signs
Temp Pulse Resp BP Pulse Ox
98 F 82 15 104/53 95
11/11/23 07:30 11/11/23 07:54 11/11/23 07:54 11/11/23 06:00 11/11/23 08:15
Lab Results
11/11/23 03:55
11/11/23 03:55
Calcium 7.4 mg/dl (8.4-10.2) L 11/11/23 03:55
Magnesium 1.8 mg/dl (1.6-2.3) 11/09/23 04:31
Total Bilirubin 0.5 mg/dl (0.2-1.3) 11/09/23 04:31
AST 24 U/L (14-36) 11/09/23 04:31
ALT 13 U/L (0-35) 11/09/23 04:31
Alkaline Phosphatase 153 U/L (38-126) H 11/09/23 04:31
Total Protein 3.9 g/dl (6.3-8.2) L D 11/09/23 04:31
Albumin 1.7 g/dl (3.5-5.0) L 11/09/23 04:31
Physical Exam
-
Gen: NAD
Abd: soft, NT, ART MODEL, obese
--- NOTE | 2023-11-11 17:21 | PTCARENOTE ---
No more drainage from Rectal trumpet - tube removed as stool is now too thick to pass through tube. Diet advanced to Fulls and then Low Res; Good krystyna, tolerating new diet well. Complete bed bath done. Sent to Ultrasound - Neg for DVT;
--- NOTE | 2023-11-11 20:29 | PTCARENOTE ---
Patient resting in bed, able to turn and reposition with assist. Denies pain, slightly bloated feeling in abdomen. Passing flatus, and incontinent of stool earlier.
[2023-11-11] MEDS: ELIQUIS 5 MG PO (20:57)
[2023-11-12] VITALS (12 sets, daily range): BP systolic 112–156; BP diastolic 53–103; PULSE 76–80; O2SAT 95
[2023-11-12] MEDS: REGLAN 5 MG IV ×3 (03:15→19:52)
[2023-11-12] MEDS: DESENEX/MITRAZOL/ZEASORB 1 APPLIC TOPICAL ×2 (03:15→10:01)
[2023-11-12 03:32] LABS: % Basophils 0.8 % (0-2); % Eosinophils 4.1 % (0-6); % Immature Granulocytes 0.4 % (0-0.5); % Lymphocytes 36.8 % (20.5-51.1); % Monocytes 8.6 % (1.7-9.3); % Neutrophils 49.3 % (42.2-75.2); Absolute Eosinophils 0.2 10^3/uL (0-0.7); Absolute Lymphocytes 1.9 10^3/uL (1.2-3.4); Absolute Monocytes 0.4 10^3/uL (0.1-0.6); Absolute Neutrophils 2.5 10^3/uL (1.4-6.5); Hematocrit 29.2 % (37.0-47.0); Hemoglobin 9.4 g/dL (12.0-16.0); Mean Corp Hgb Conc. 32.2 g/dL (33.0-37.0); Mean Corpuscular Hgb 34.4 pg (27.0-31.0); Mean Platelet Volume 8.6 fL (7.4-10.4); Nucleated Red Blood Cells % 0 %; Platelet Count 190 10^3/uL (130-400); Red Blood Cell Count 2.73 10^6/uL (4.20-5.40); Red Cell Dist. Width 17.7 % (11.5-14.5); White Blood Cell Count 5.1 10^3/uL (4.8-10.8)
[2023-11-12 03:46] LABS: Blood Urea Nitrogen 4 mg/dl (7-17); Calcium 7.4 mg/dl (8.4-10.2); Carbon Dioxide 20 mmol/L (22-30); Chloride 113 mmol/L (98-107); Estimated Creatinine Clearance 103 ml/min; Glucose 89 mg/dl (70-99); Potassium 3.8 mmol/L (3.5-5.1); Sodium 135 mmol/L (135-145); eGFR > 60.00
[2023-11-12] MEDS: ADVAIR HFA 115/21 MCG INHALER 2 PUFF INH ×2 (08:16→20:25)
--- NOTE | 2023-11-12 09:25 | CM ---
Patient with Hx Metastatic ovarian cancer with Dx Subacute GI bleed, SBO. Room air. Full liquids, Advancing Diet. PT Eval 11/10; mod-max assist of 2 for bed mobility, recommend skilled rehab. OT Eval 11/09; dependent for toileting & UE self care,
max assist LE self care, recommend skilled rehab.
SNF referrals reviewed in [employer]: [facility] accepted pending bed availability, [facility] interested & requesting # days at prior SNF, no response [facility].
As per prior CM notes, the patient prefers [facility].
Spoke with Blaine Patel [facility]; the patient was at their facility from 08/30/23 to 10/02/23.
Response to [facility] via [employer].
Spoke with Blaine Bar; she will review the referral and let CM know if they can accept.
Spoke with daughter Giuliana and provided update. She agrees with [facility] and is also okay with [facility], [facility] and [facility].
Plan follow up with [facility] for acceptance.
Plan SNF for rehab with insurance approval.
[2023-11-12] MEDS: KCL ELIXIR 40 MEQ PO (10:01)
[2023-11-12] MEDS: HYDROPHOR 1 APPLIC TOPICAL (10:01)
[2023-11-12] MEDS: ELIQUIS 5 MG PO ×2 (10:02→19:51)
[2023-11-12] MEDS: NSS (PRESERVATIVE FREE) 10 ML IV (10:11)
[2023-11-12] MEDS: PROTONIX IV 40 MG IV (10:11)
--- NOTE | 2023-11-12 13:19 | W.PN.HOSP.TC ---
Today's Communication/Plan
-
Onc input
monitor diet tolerance
eliquis
OOB/PT
Assessment / Plan
Assessment / Plan
Gen-AAOx3, NAD, obese
HEENT-NC, AT, anicteric, clear oral mm
Neck-supple
CV-reg, no M, +S1/S2
Lungs-clear B/L
Abd-soft, mild diffuse tenderness, mild distention
Ext-bilateral lower extremity edema, left greater than right
Musculoskeletal-no cyanosis, clubbing
Skin-warm and dry
Neuro-grossly non-focal
Psych-calm, cooperative
Subacute GI bleed -hemodynamically stable. GI bleed exacerbated by anticoagulation with Eliquis. Heme positive stool in the emergency room. Eliquis on hold. Monitor hemoglobin. GI consulted and signed off.
Acute on chronic anemia -unclear baseline hemoglobin. Acute blood loss anemia due to GI bleed. Baseline chronic anemia likely due to malignancy. Component of dilutional acute anemia from IV fluids as well. Hemoglobin 9.4 today.
Small bowel obstruction -second episode of bowel obstruction in her lifetime. Suspect malignant obstruction given known history of ovarian cancer. NG tube removed on Sunday. Started on LR and seems to be tolerating it so far
Hypokalemia -replete/monitor
History of bowel obstruction with cecal mass -treated with right colectomy February 2021.
Metastatic ovarian cancer -followed by [place] [facility]. Treated with chemotherapy last year.
History of colon cancer -treated in 2020 with partial colectomy and chemotherapy.
COPD without exacerbation -stable.
Essential hypertension -stable.
JAYLEEN
History of VTE/Left lower extremity shows combination of nonocclusive and occlusive thrombus in the femoral popliteal deep venous system- Clinically suspected most of it is chronic in nature. US from 07/09 noted. Restart on Eliquis- Await further
onc input
Anxiety/depression
Peripheral neuropathy
Severe malnutrition of chronic illness -prealbumin 7.0.
Obesity due to excess calories
DNR
Dispo - will need SNF on discharge given her severe deconditioning.
PT/OT
Tx out IMU
Anticipated Discharge: 24 - 48 hours
Subjective/Interval History
-
Date of Service: November 12, 2023
tolerating diet
no overnight events
no abd pain
passing flatulence
Objective Data
-
Labs:
Laboratory Results
11/12/23
03:20
WBC 5.1
Hgb 9.4 L
Hct 29.2 L
Plt Count 190
Sodium 135
Potassium 3.8
Chloride 113 H
Carbon Dioxide 20 L
BUN 4 L
Creatinine 0.6
Glucose 89
Calcium 7.4 L
Vital Signs:
Vital Signs
Temp Pulse Resp BP Pulse Ox
97.8 F 70 14 136/76 96
11/12/23 11:24 11/12/23 08:19 11/12/23 08:19 11/12/23 04:00 11/12/23 11:31
I&O
11/11/23 11/12/23 11/13/23
06:59 06:59 06:59
Intake Total 1060 / 1060 240 / 240
Output Total 1850 / 1850 350 / 350
Balance -790 / -790 -110 / -110
--- NOTE | 2023-11-12 17:48 | PTCARENOTE ---
Pt transported to 4th floor via stretcher
[2023-11-12 19:06] LABS: CA 125 513 U/mL (0-35)
[2023-11-12] MEDS: PROTONIX 40 MG PO (19:51)
[2023-11-12] MEDS: DESENEX/MITRAZOL/ZEASORB TOPICAL (19:59)
--- NOTE | 2023-11-12 21:00 | W.PN.ONC2 ---
Today's Communication / Plan
-
Start palliative Femara.
Will request limited NGS panel to eval for actionable mutations: BRAF V600E, NTRK gene fusion, RET gene fusion.
No objection to D/C to rehab.
Impression
Impression
Functional SBO secondary to malignancy
Progressive peritoneal recurrence of ovarian carcinoma
History of VTE
Colon carcinoma
COPD
Hypertension
Poor PS
Plan
Plan
SBO typical of peritoneal small bowel dysfunction associated with malignancy no clear transition point
NG decompression. Xray 11/10 showed contrast to distal colon, no transition point, resolving partial SBO. NGT removed and so far tolerated diet, ADAT.
Continue Reglan/ondansetron for nausea
IV hydration
Patient has seen palliative care as an outpatient has been unable to initiate bevacizumab due to performance status, clot risk in setting of immobility, PSBO.
She has not been able to come to the office.
Start palliative Femara.
Subjective/Objective
Chief Complaint
Heme/Onc follow up of ovarian cancer, in with PSBO
Subjective
No new complaints. In decent spirits. 'I just want to be able to walk again.'
Vital Signs:
Vital Signs
Temp Pulse Resp BP Pulse Ox
97.7 F 83 12 127/90 98
11/12/23 15:05 11/12/23 20:29 11/12/23 20:29 11/12/23 14:00 11/12/23 20:29
Lab Results:
Laboratory Data
WBC 5.1 10^3/uL (4.8-10.8) 11/12/23 03:20
Hgb 9.4 g/dL (12.0-16.0) L 11/12/23 03:20
Plt Count 190 10^3/uL (130-400) 11/12/23 03:20
PT 15.4 Sec (11.4-14.6) H 11/07/23 18:08
INR 1.22 11/07/23 18:08
eGFR > 60.00 11/12/23 03:20
Physical Exam
HEENT: Moist Mucous Membranes; No Jaundice
Cardiology: Normal Sinus Rhythm, S1 and S2
Pulmonary: Clear
GI: Soft
Extremities: Phlebitic Signs
Neuro: Non Focal
[2023-11-13] MEDS: REGLAN 5 MG IV ×3 (03:15→19:48)
[2023-11-13 07:30] VITALS: BP 152/79
[2023-11-13] MEDS: ELIQUIS 5 MG PO ×2 (08:21→19:48)
[2023-11-13] MEDS: PROTONIX 40 MG PO ×2 (08:21→19:48)
[2023-11-13] MEDS: KCL ELIXIR 40 MEQ PO (08:21)
[2023-11-13] MEDS: HYDROPHOR 1 APPLIC TOPICAL (08:22)
[2023-11-13] MEDS: DESENEX/MITRAZOL/ZEASORB 1 APPLIC TOPICAL ×2 (08:22→19:49)
[2023-11-13] MEDS: ADVAIR HFA 115/21 MCG INHALER 2 PUFF INH ×2 (09:09→20:05)
--- NOTE | 2023-11-13 12:08 | W.PN.HOSP.TC ---
Today's Communication/Plan
-
await placement
Assessment / Plan
Assessment / Plan
Gen-AAOx3, NAD, obese
HEENT-NC, AT, anicteric, clear oral mm
Neck-supple
CV-reg, no M, +S1/S2
Lungs-clear B/L
Abd-soft, mild diffuse tenderness, mild distention
Ext-bilateral lower extremity edema, left greater than right
Musculoskeletal-no cyanosis, clubbing
Skin-warm and dry
Neuro-grossly non-focal
Psych-calm, cooperative
Subacute GI bleed -hemodynamically stable. GI bleed exacerbated by anticoagulation with Eliquis. Heme positive stool in the emergency room. Monitor hemoglobin. GI consulted and signed off.
Acute on chronic anemia -unclear baseline hemoglobin. Acute blood loss anemia due to GI bleed. Baseline chronic anemia likely due to malignancy. Component of dilutional acute anemia from IV fluids as well. Hemoglobin 9.4
Small bowel obstruction -second episode of bowel obstruction in her lifetime. Suspect malignant obstruction given known history of ovarian cancer. NG tube removed on Sunday. Started on LR and seems to be tolerating it so far
Hypokalemia -replete/monitor
History of bowel obstruction with cecal mass -treated with right colectomy February 2021.
Metastatic ovarian cancer -followed by [facility]. Treated with chemotherapy last year. Palliative treatment per onc
History of colon cancer -treated in 2020 with partial colectomy and chemotherapy.
COPD without exacerbation -stable.
Essential hypertension -stable.
JAYLEEN
History of VTE/Left lower extremity shows combination of nonocclusive and occlusive thrombus in the femoral popliteal deep venous system- Clinically suspected most of it is chronic in nature. US from 07/09 noted. Restart on Eliquis-
Anxiety/depression
Peripheral neuropathy
Severe malnutrition of chronic illness -prealbumin 7.0.
Obesity due to excess calories
DNR
Dispo - will need SNF on discharge
PT/OT-SNF. Await placement. CM aware.
Anticipated Discharge: Within 24 hours
Subjective/Interval History
-
Date of Service: November 13, 2023
Tolerating diet
no abd pain
Objective Data
-
Vital Signs:
Vital Signs
Temp Pulse Resp BP Pulse Ox
98 F 85 16 152/79 100
11/13/23 07:30 11/13/23 09:13 11/13/23 09:13 11/13/23 07:30 11/13/23 09:13
I&O
11/12/23 11/13/23 11/14/23
06:59 06:59 06:59
Intake Total 240 / 240
Output Total 350 / 350 600 / 600
Balance -110 / -110 -600 / -600
--- NOTE | 2023-11-13 12:55 | CM ---
Addendum entered by Mary Khan 11/13/23 15:45:
IMM completed.
Ambulance Medical necessity forms on chart.
Addendum entered by Mary Khan 11/13/23 15:28:
TCB from [facility], bed available at the [facility] for tomorrow.
Patient will need updated PT/OT notes prior to auth.
TC to Rehab department requested 11/14/23 am therapy.
[facility]
Facility NPI# [id number] Beba Garcia NPI# [id number]
Facility report# [phone]
Facility fax# [phone]
Addendum entered by Mary Khan 11/13/23 14:43:
Patient accepted at the [facility] and [facility].
TC to [facility] re bed availability.
Discussed with patient and daughter.
Await TCB from [facility].
Needs insurance auth.
Original Note:
Bed search continues.
Await [facility] re bed availability.
Patient will require insurance authorization.
PT/OT recommending skilled rehab.
Plan: skilled rehab when bed available.
[2023-11-13 15:30] VITALS: BP 135/78
[2023-11-13] MEDS: REMERON 7.5 MG PO (21:25)
[2023-11-13 22:00] VITALS: BP 155/72
[2023-11-14] MEDS: REGLAN 5 MG IV ×2 (03:50→12:45)
[2023-11-14 05:45] LABS: Blood Urea Nitrogen 5 mg/dl (7-17); Calcium 6.6 mg/dl (8.4-10.2); Carbon Dioxide 24 mmol/L (22-30); Chloride 111 mmol/L (98-107); Estimated Creatinine Clearance 103 ml/min; Glucose 76 mg/dl (70-99); Potassium 2.8 mmol/L (3.5-5.1); Sodium 136 mmol/L (135-145); eGFR > 60.00
[2023-11-14] MEDS: CALCIUM GLUCONATE 100 IV (06:09)
[2023-11-14 07:00] VITALS: BP 146/78
[2023-11-14] MEDS: KCL 270 MEQ IV (09:04)
[2023-11-14] MEDS: PROTONIX 40 MG PO (09:05)
[2023-11-14] MEDS: DESENEX/MITRAZOL/ZEASORB 1 APPLIC TOPICAL (09:05)
[2023-11-14] MEDS: ELIQUIS 5 MG PO (09:05)
[2023-11-14] MEDS: KCL ELIXIR 40 MEQ PO ×2 (09:06→12:45)
[2023-11-14] MEDS: HYDROPHOR 1 APPLIC TOPICAL (09:06)
[2023-11-14] MEDS: FEMARA 2.5 MG PO (09:07)
[2023-11-14 09:23] VITALS: BP 100/67; BP 129/67; PULSE 79; O2SAT 98
[2023-11-14 09:24] VITALS: BP 100/67; BP 129/63; PULSE 78; O2SAT 98
[2023-11-14] MEDS: ADVAIR HFA 115/21 MCG INHALER 2 PUFF INH (09:29)
--- NOTE | 2023-11-14 11:38 | W.PN.HOSP.TC ---
Today's Communication/Plan
-
replete KCL
repeat levels
await placement
Assessment / Plan
Assessment / Plan
Gen-AAOx3, NAD, obese
HEENT-NC, AT, anicteric, clear oral mm
Neck-supple
CV-reg, no M, +S1/S2
Lungs-clear B/L
Abd-soft, mild diffuse tenderness, mild distention
Ext-bilateral lower extremity edema, left greater than right
Musculoskeletal-no cyanosis, clubbing
Skin-warm and dry
Neuro-grossly non-focal
Psych-calm, cooperative
Subacute GI bleed -hemodynamically stable. GI bleed exacerbated by anticoagulation with Eliquis. Heme positive stool in the emergency room. Monitor hemoglobin. GI consulted and signed off.
Acute on chronic anemia -unclear baseline hemoglobin. Acute blood loss anemia due to GI bleed. Baseline chronic anemia likely due to malignancy. Component of dilutional acute anemia from IV fluids as well. Hemoglobin 9.4
Small bowel obstruction -second episode of bowel obstruction in her lifetime. Suspect malignant obstruction given known history of ovarian cancer. NG tube removed on Sunday. Started on LR and seems to be tolerating it so far
Hypokalemia -K at 2.8 ordered IV and po. replete/monitor. Repeat bmp later today.
Hypocalcemia-replete/monitor.
History of bowel obstruction with cecal mass -treated with right colectomy February 2021.
Metastatic ovarian cancer -followed by [facility]. Treated with chemotherapy last year. Palliative treatment per onc started on FEMARA
History of colon cancer -treated in 2020 with partial colectomy and chemotherapy.
COPD without exacerbation -stable.
Essential hypertension -stable.
JAYLEEN
History of VTE/Left lower extremity shows combination of nonocclusive and occlusive thrombus in the femoral popliteal deep venous system- Clinically suspected most of it is chronic in nature. US from 07/09 noted. Restart on Eliquis-
Anxiety/depression-restarted remeron and bupropion
Peripheral neuropathy
Severe malnutrition of chronic illness -prealbumin 7.0.
Obesity due to excess calories
DNR
Dispo - will need SNF on discharge
predatory animal exterminator prognosis poor.
PT/OT-SNF. Await placement. CM aware.
Anticipated Discharge: Today
Subjective/Interval History
-
Date of Service: November 14, 2023
no abd discomfort
tolerating diet
Objective Data
-
Labs:
Laboratory Results
11/14/23
04:16
Sodium 136
Potassium 2.8 L D
Chloride 111 H
Carbon Dioxide 24
BUN 5 L
Creatinine 0.5 L
Glucose 76
Calcium 6.6 L*
Vital Signs:
Vital Signs
Temp Pulse Resp BP Pulse Ox
97.8 F 94 16 146/78 97
11/14/23 07:00 11/14/23 09:30 11/14/23 09:30 11/14/23 07:00 11/14/23 09:30
I&O
11/13/23 11/14/23 11/15/23
06:59 06:59 06:59
Intake Total 120 / 120
Output Total 600 / 600 500 / 500
Balance -600 / -600 -380 / -380
Data Reviewed
-
Total Time Spent with Patient (in minutes): 55
--- NOTE | 2023-11-14 11:51 | CM ---
Addendum entered by Lashonda Cox 11/14/23 15:39:
Pt and daughter aware of transport time
Addendum entered by Lashonda Cox 11/14/23 13:50:
Spoke with Reggie Liaison for [facility] - given auth # and information regarding next review
Addendum entered by Lashonda Cox 11/14/23 13:39:
Multiple attempts made to reach facility to give auth information
Spoke with Dipika at [facility]
Given auth number and info, also approx time of d/c
Given call back info - per Dipika admissions will return call
Original Note:
Chart reviewed. Plan to transfer to [facility] today
Per Dr Thrasher pt will be ready today after 3PM
[facility]
Facility NPI# [id number]
Dr Beba Garcia NPI# [id number]
Called [facility] @ [phone] to obtain auth
Spoke with Lenora
Approved for 6 days - level 1
from 11/14-11/18
next review 11/18
call
Auth# [id number] -facility
Auth# [id number] - [facility]
Facility report# [phone]
Facility fax# [phone]
[2023-11-14 14:54] LABS: Blood Urea Nitrogen 6 mg/dl (7-17); Calcium 7.7 mg/dl (8.4-10.2); Carbon Dioxide 24 mmol/L (22-30); Chloride 106 mmol/L (98-107); Estimated Creatinine Clearance 103 ml/min; Glucose 106 mg/dl (70-99); Potassium 4.6 mmol/L (3.5-5.1); Sodium 137 mmol/L (135-145); eGFR > 60.00
--- NOTE | 2023-11-14 15:22 | W.DCSUMMARY ---
Discharge Summary
Discharge Data
Date of Admission: 11/07/23
Date of Discharge: 11/14/23
-
Pending Results: No
Hospital Course
68-year-old female past medical history of multicystic ovarian cancer, colon cancer status post colectomy and chemotherapy, COPD, hypertension, JAYLEEN, DVT, anxiety, depression, neuropathy, history of bowel obstruction, anemia who is presented with
abdominal discomfort. Patient with subacute bleeding. Per GI bleed extensive anticoagulation with Eliquis. Patient was also found to have a partial small bowel obstruction in the setting of malignancy. NG tube was placed. Eventually improvement
abdominal examination. Patient was eval by general surgery. Patient underwent small bowel follow-through with delayed passage of contrast, but it did eventually reach the colon with passage of stools since that time. NG tube was removed.
Patient was on liquid diet. Patient was tolerating diet and having loose stools and passing flatulence. Diet was finally advanced to low residue. Patient with lower extremity swelling and underwent ultrasound which showed DVT which seems chronic
and Eliquis was restarted. Hemoglobin stabilized. Patient also with severe hypokalemia and was repleted presently. Oncology on the patient and started patient on palliative care chemotherapy regimen. Patient was referred physical and
Occupational Therapy for discharge to SNF.
Discharge Plan
-
Patient Disposition: Longterm/SNF
Discharge Diagnosis/Procedures: Subacute gastrointestinal bleeding
Acute on chronic anemia
Small bowel obstruction likely secondary to malignancy
Hypokalemia
Hypocalcemia
Condition: Fair
Diet: Low Residue
Activity: With assistance and As tolerated
Driving Restrictions: Not until seen by your Dr
Blood Work: Recommend BMP in 1 week with primary doctor.
Activity Restrictions/Additional Instructions:
Wound Care Instructions Right Hip Burn- Clean with normal saline or soap and water. Apply Aquaphor daily and as needed.
Recommend to�consume smaller portions and softer/easier to digest foods for the foreseeable future to hopefully minimize recurrent partial small bowel obstruction symptoms/occurrences.
Referrals:
Lalita Small CRNP [Family Provider] - in less than 1 week
Prescriptions:
New
letrozole 2.5 mg Tablet
2.5 mg PO DAILY 30 Days Qty: 30 0RF
pantoprazole [Protonix] 40 mg tablet,delayed release (DR/EC)
40 mg PO DAILY Qty: 30 0RF
Continued
fluticasone propion-salmeterol 250-50 mcg/dose blister with device
1 inh INHALATION R BID
loratadine [Claritin] 10 mg Tablet
10 mg PO DAILY PRN (Reason: prior to chemo shot)
calcium carbonate [Tums] 200 mg calcium (500 mg) Tablet,Chewable
200 mg PO TIDPRN PRN (Reason: gerd)
mirtazapine 7.5 mg Tablet
7.5 mg PO HS Qty: 20 0RF
bupropion HCl 300 mg Tablet Extended Release 24 Hr
300 mg PO DAILY Qty: 0 0RF
bupropion HCl 150 mg Tablet Extended Release 24 Hr
150 mg PO HS Qty: 0 0RF
Eliquis 5 mg tablet
5 mg PO BID
potassium chloride 20 mEq tablet extended release
40 meq PO DAILY
cholestyramine-aspartame [Cholestyramine Light] 4 gram powder in packet
4 g PO BID@0900,1800
Discontinued
gabapentin 100 MG capsule
200 mg PO TID
sodium bicarbonate 650 mg tablet
650 mg PO TID
Discharge Orders:
Discharge Patient (As Directed); Ordered 11/14/23
Ordered By: Manolo Thrasher
Discharge Date and Time
Discharge Date/Time: 11/14/23 18:49
[2023-11-14 15:55] VITALS: BP 136/69
[2023-11-14] MEDS: PREVNAR 20 0.5 ML IM (17:38)
== END 2023-11-14 18:49 | DRG 374 ==
LOC: 4 WEST ACU 23:07
PROVIDERS: Clinical Nurse Specialist Family Health; Emergency Medicine; Hospitalist; Physician Assistant Medical; Radiology Vascular & Interventional Radiology; Surgery; ADMITTING PHYSICIAN Internal Medicine; ATTENDING PHYSICIAN Hospitalist; CONSULT PHYSICIAN Internal Medicine Gastroenterology; CONSULT PHYSICIAN Surgery; EMERGENCY PHYSICIAN Emergency Medicine; FAMILY PHYSICIAN Nurse Practitioner Family; OTHER PHYSICIAN Internal Medicine Hematology & Oncology; OTHER PHYSICIAN Nurse Practitioner Family
PROC: 0D9670Z Drainage of Stomach with Drainage Device, Via Natural or Artificial Opening (ICD-10-PCS; 2023-11-08)
PROC: 0DP0XUZ Removal of Feeding Device from Upper Intestinal Tract, External Approach (ICD-10-PCS; 2023-11-10)
PROC: 3E0234Z Introduction of Serum, Toxoid and Vaccine into Muscle, Percutaneous Approach (ICD-10-PCS; 2023-11-14)
DX: C78.6 Secondary malignant neoplasm of retroperitoneum and peritoneum (principal); E43 Unspecified severe protein-calorie malnutrition; C56.9 Malignant neoplasm of unspecified ovary; K62.5 Hemorrhage of anus and rectum; D62 Acute posthemorrhagic anemia; D68.32 Hemorrhagic disorder due to extrinsic circulating anticoagulants; I82.512 Chronic embolism and thrombosis of left femoral vein; I82.532 Chronic embolism and thrombosis of left popliteal vein; Z51.5 Encounter for palliative care; F32.A Depression, unspecified; G43.909 Migraine, unspecified, not intractable, without status migrainosus; G47.33 Obstructive sleep apnea (adult) (pediatric); F41.9 Anxiety disorder, unspecified; G62.9 Polyneuropathy, unspecified; K52.9 Noninfective gastroenteritis and colitis, unspecified; K76.0 Fatty (change of) liver, not elsewhere classified; E83.51 Hypocalcemia; N20.0 Calculus of kidney; K57.90 Diverticulosis of intestine, part unspecified, without perforation or abscess without bleeding; K64.9 Unspecified hemorrhoids; K21.9 Gastro-esophageal reflux disease without esophagitis; F17.210 Nicotine dependence, cigarettes, uncomplicated; R63.4 Abnormal weight loss; I10 Essential (primary) hypertension; E66.09 Other obesity due to excess calories; D72.819 Decreased white blood cell count, unspecified; E87.6 Hypokalemia; J44.9 Chronic obstructive pulmonary disease, unspecified; E66.9 Obesity, unspecified; Z85.038 Personal history of other malignant neoplasm of large intestine; Z86.711 Personal history of pulmonary embolism; Z87.442 Personal history of urinary calculi; Z23 Encounter for immunization; Z92.21 Personal history of antineoplastic chemotherapy; Z66 Do not resuscitate; Z90.49 Acquired absence of other specified parts of digestive tract; Z79.01 Long term (current) use of anticoagulants; Z68.36 Body mass index [BMI] 36.0-36.9, adult
CPT/HCPCS: 71046; 74018; 74177; 74250; 80048; 80053; 81003; 81015; 82378; 83735; 84134; 84484; 85025; 85027; 85610; 86304; 86850; 86900; 86901; 87070; 87086; 90677; 93005; 93970; 94640; 96361; 96374; 96375; 97163; 97167; 97530; 97535; 99285; G0009; J3480; Q9967